=== PATIENT | male | born 1990 | race Caucasian/White ===

== ENCOUNTER 2016-04-01 15:32 | Emergency (ER) | payer OTHER ==
[~2016-04-01] VITALS: Ht 177.8 cm; Wt 98.0 kg
[2016-04-01] MEDS ORDERED: NORCO 5/3251 TABLET PO (17:41)
[2016-04-01 17:56] VITALS: BP 138/85
== END 2016-04-01 17:57 | disposition home or self-care (01) ==
LOC: EME 15:32
DX: S43.111A Subluxation of right acromioclavicular joint, initial encounter (principal); V00.311A Fall from snowboard, initial encounter; Y93.23 Activity, snow (alpine) (downhill) skiing, snowboarding, sledding, tobogganing and snow tubing
CPT/HCPCS: 73000; 99281; 99283